=== PATIENT | female | born 1945 | race Caucasian/White ===

== ENCOUNTER 2017-11-27 08:36 | Inpatient (IN) ==
[2017-11-27] MEDS ORDERED: Piperacil/Tazo 2.25 GM Premix 50 ML IV.SIG ONE (11:12)
[2017-11-27] MEDS ORDERED: Vancomycin Inj 1 GM/200 ML PIGGYBACK IV.SIG ONE (11:12)
[2017-11-27] MEDS ORDERED: Sod Chloride 0.9% Inj 1,000 ML IV.SIG ONE (11:12)
--- NOTE | 2017-11-27 11:21 | ED ---
HPI General Chief complaint: Skin/Abscess/Foreign Body Stated complaint: Pain Left Leg Time Seen by Provider: 11/27/17 11:01 Source: patient Mode of arrival: ambulatory Limitations: no limitations History of Present Illness HPI narrative: 72-year-old female with PMH of DM, A. fib, stage III CKD presents the ED for evaluation of wound of the left lower extremity. Sustained approximately 1 week ago. Patient states that she hit the end of the bed while going to the bathroom in the middle of the night. She states that she felt feverish yesterday but has not measured a temperature at home. She denies nausea or vomiting, numbness, tingling, weakness, limitations to range of motion of the leg, history of MRSA. She states that she saw her primary care provider approximately 5 days ago and was prescribed Keflex and Bactroban ointment. She is taken 4 days worth of the medications with no improvement of symptoms. She now complains of red streaking down the leg. Patient is visiting from [place] with her family. Related Data Home Medications Medication Instructions Recorded Confirmed acetaminophen [Tylenol] 650 mg PO Q8H PRN 11/27/17 11/27/17 allopurinol 300 mg PO DAILY 11/27/17 11/27/17 atorvastatin [Lipitor] 10 mg PO DAILY 11/27/17 11/27/17 calcitriol 0.25 mcg PO Q OTHER DAY 11/27/17 11/27/17 estradiol [Estrace] 1 g VAGINAL 3XW 11/27/17 11/27/17 gabapentin 300 mg PO BID 11/27/17 11/27/17 levothyroxine [Synthroid] 100 mcg PO DAILY 11/27/17 11/27/17 liraglutide [Victoza 2-Jaydon] 0.6 mg SUB-Q DAILY 11/27/17 11/27/17 magnesium oxide 400 mg PO BID 11/27/17 11/27/17 metoprolol tartrate 25 mg PO BID 11/27/17 11/27/17 omeprazole magnesium [Prilosec OTC] 20 mg PO DAILY 11/27/17 11/27/17 paroxetine HCl [Paxil] 10 mg PO DAILY 11/27/17 11/27/17 rivaroxaban [Xarelto] 15 mg PO QPM 11/27/17 11/27/17 torsemide 10 mg PO DAILY 11/27/17 11/27/17 zolpidem [Ambien] 10 mg PO DAILY PRN 11/27/17 11/27/17 Allergies Allergy/AdvReac Type Severity Reaction Status Date / Time levofloxacin [From Levaquin] AdvReac Gastrointestinal Verified 11/27/17 08:43 Upset Review of Systems Except as stated in HPI: all other systems reviewed are negative [facility] Medical History Medical History Atrial fibrillation (Acute) Chronic kidney disease (Acute) Diabetes mellitus (Acute) H/O: hysterectomy (Acute) Hypertension (Acute) Kidney stones (Acute) Surgical History Surgical History History of appendectomy (Acute) History of cholecystectomy (Acute) Social History Social History Substance History: No History of Abuse Smoking Status: Never smoker How Often Do You Have a Drink Containing Alcohol: Monthly or less Recent Travel in [facility] within the Last 8 Weeks: No Recent Out of Country Travel within the Last 8 Weeks: No Exam Narrative Exam Narrative: GENERAL: Well-nourished, well-developed pleasant white female in no acute distress. SKIN: Focused skin assessment warm/dry. There is a 2 x 3 cm superficial abrasion of the proximal third of the anterior left calf. There is erythematous , mildly tender cellulitic streaking that extends nearly to the ankle. HEAD: Normocephalic. EYES: No scleral icterus. No injection or drainage. NECK: Supple, trachea midline. No JVD or lymphadenopathy. CARDIOVASCULAR: Regular rate and rhythm without murmurs, gallops, or rubs. RESPIRATORY: Breath sounds equal bilaterally. No accessory muscle use. GASTROINTESTINAL: Abdomen soft, non-tender, nondistended. MUSCULOSKELETAL: No cyanosis, or edema. FOCUSED LEFT LOWER EXTREMITY EXAM: 2+ DP pulse. Homans sign negative. Patient retains full, active, painless R OM of the extremity. Neurovascularly intact distally. BACK: Nontender without obvious deformity. No CVA tenderness. Course Initial Documented Vital Signs Temperature 98.3 F 11/27/17 08:43 Pulse Rate 70 11/27/17 08:43 Respiratory Rate 16 11/27/17 08:43 Blood Pressure 140/65 11/27/17 08:43 Pulse Oximetry 97 11/27/17 08:43 Last Documented Vital Signs Temperature 98.3 F 11/27/17 08:43 Pulse Rate 65 11/27/17 11:28 Respiratory Rate 18 07/17/18 11:28 Blood Pressure 136/98 H 11/27/17 11:28 Pulse Oximetry 97 11/27/17 11:28 Medical Decision Making MDM Narrative Medical decision making narrative: 72-year-old female with PMH of A. fib, DM, stage III CKD presents the ED for evaluation of cellulitis of the left lower extremity. Onset after bumping her leg against the bed frame in the middle the night while on vacation. Vitals reviewed. Physical exam consistent with lower extremity cellulitis. Patient has failed outpatient treatment. IV vancomycin and Zosyn initiated. Plan to admit for observation. Patient is agreeable with this plan. I spoke with Dr. Newman who agrees to accept the patient to the medicine service. Please see medicine notes for disposition. Differential Diagnosis Differential Diagnosis: Abrasion versus cellulitis versus failed outpatient treatment versus sepsis versus other Lab Data Result diagrams: 11/27/17 11:19 11/27/17 11:19 Lab Results 11/27/17 11/27/17 11/27/17 Range/Units 11:19 11:19 11:19 WBC 6.0 (4.0-11.0) th/mm3 RBC 3.82 L (4.00-5.30) mil/mm3 Hgb 12.4 (11.6-15.3) gm/dL Hct 37.8 (35.0-46.0) % MCV 98.9 (80.0-100.0) fL MCH 32.4 (27.0-34.0) pg MCHC 32.8 (32.0-36.0) % RDW 14.7 (11.6-17.2) % Plt Count 201 (150-450) th/mm3 MPV 7.7 (7.0-11.0) fL Neut % (Auto) 63.3 (16.0-70.0) % Lymph % (Auto) 26.7 (9.0-44.0) % [place] % (Auto) 6.6 (0.0-8.0) % Eos % (Auto) 3.0 (0.0-4.0) % Baso % (Auto) 0.4 (0.0-2.0) % Neut # (Auto) 3.8 (1.8-7.7) th/mm3 Lymph # (Auto) 1.6 (1.0-4.8) th/mm3 [place] # (Auto) 0.4 (0.0-0.9) th/mm3 Eos # (Auto) 0.2 (0.0-0.4) th/mm3 Baso # (Auto) 0.0 (0.0-0.2) th/mm3 WBC Differential . Differential Comment Auto diff final Sodium 143 (136-145) meq/L Potassium 4.3 (3.5-5.1) meq/L Chloride 108 H (98-107) meq/L Carbon Dioxide 28.0 (21.0-32.0) meq/L Anion Gap 7 (5-15) meq/L BUN 23 H (7-18) mg/dL Creatinine 1.61 H (0.50-1.00) mg/dL Estimated GFR 31 L (>89) mL/min Random Glucose 102 (74-106) mg/dL Lactic Acid 0.9 (0.4-2.0) mmol/L Calcium 9.0 (8.5-10.1) mg/dL Total Bilirubin 0.6 (0.2-1.0) mg/dL AST 25 (15-37) U/L ALT 14 (10-53) U/L Alkaline Phosphatase 73 (45-117) U/L Total Protein 7.3 (6.4-8.2) g/dL Albumin 3.2 L (3.4-5.0) g/dL Discharge Plan Discharge Disposition Patient Disposition: 30 Still Patient Discharge Details Diagnosis: Cellulitis of left lower extremity Physicians Team ED Provider: Catracho Bella ED Midlevel Provider: Yumiko Santizo Primary Care Provider: UNKNOWN, Rxs /Orders / Referrals /Forms Prescriptions: No Action acetaminophen [Tylenol] 325 mg Tablet 650 mg PO Q8H PRN (Reason: Pain) RF: 0 paroxetine HCl [Paxil] 10 mg Tablet 10 mg PO DAILY RF: 0 atorvastatin [Lipitor] 10 mg Tablet 10 mg PO DAILY RF: 0 torsemide 10 mg Tablet 10 mg PO DAILY RF: 0 levothyroxine [Synthroid] 100 mcg Tablet 100 mcg PO DAILY RF: 0 gabapentin 300 mg Capsule 300 mg PO BID RF: 0 allopurinol 300 mg Tablet 300 mg PO DAILY RF: 0 estradiol [Estrace] 0.01 % (0.1 mg/gram) Cream 1 g VAGINAL 3XW RF: 0 zolpidem [Ambien] 10 mg Tablet 10 mg PO DAILY PRN (Reason: Insomnia) RF: 0 calcitriol 0.25 mcg Capsule 0.25 mcg PO Q OTHER DAY RF: 0 omeprazole magnesium [Prilosec OTC] 20 mg Tablet,Delayed Release (Dr/Ec) 20 mg PO DAILY RF: 0 metoprolol tartrate 25 mg Tablet 25 mg PO BID RF: 0 liraglutide [Victoza 2-Jaydon] 0.6 mg/0.1 mL (18 mg/3 mL) Pen Injector 0.6 mg SUB-Q DAILY RF: 0 rivaroxaban [Xarelto] 15 mg Tablet 15 mg PO QPM RF: 0 magnesium oxide 400 mg Capsule 400 mg PO BID RF: 0 Discharge Interventions Interventions: Vital Signs Last Done: 11/27/17 11:28 Status ED Status: With Doctor
[2017-11-27 11:43] LABS: Baso % (Auto) 0.4 % (0.0-2.0); Eos # (Auto) 0.2 th/mm3 (0.0-0.4); Hematocrit 37.8 % (35.0-46.0); Hemoglobin 12.4 gm/dL (11.6-15.3); Lymph # (Auto) 1.6 th/mm3 (1.0-4.8); Lymph % (Auto) 26.7 % (9.0-44.0); Mean Corpuscular HGB Conc 32.8 % (32.0-36.0); Mean Corpuscular Hemoglobin 32.4 pg (27.0-34.0); Mean Corpuscular Volume 98.9 fL (80.0-100.0); Mean Platelet Volume 7.7 fL (7.0-11.0); Mono # (Auto) 0.4 th/mm3 (0.0-0.9); Mono % (Auto) 6.6 % (0.0-8.0); Neut # (Auto) 3.8 th/mm3 (1.8-7.7); Neut % (Auto) 63.3 % (16.0-70.0); Platelet Count 201 th/mm3 (150-450); Red Blood Count 3.82 mil/mm3 (4.00-5.30); Red Cell Distribution Width 14.7 % (11.6-17.2)
[2017-11-27 12:13] LABS: Alanine Aminotransferase 14 U/L (10-53); Albumin 3.2 g/dL (3.4-5.0); Anion Gap 7 meq/L (5-15); Aspartate Aminotransferase 25 U/L (15-37); Blood Urea Nitrogen 23 mg/dL (7-18); Chloride 108 meq/L (98-107); Glomerular Filtration Rate 31 mL/min (>89); Glucose,Random 102 mg/dL (74-106); Potassium 4.3 meq/L (3.5-5.1); Sodium 143 meq/L (136-145)
[2017-11-27 12:15] LABS: Alkaline Phosphatase 73 U/L (45-117); Total Protein 7.3 g/dL (6.4-8.2)
--- NOTE | 2017-11-27 12:56 | P.HPIM ---
History of Present Illness Primary Care Physician: UNKNOWN History of Present Illness: Mrs. Diaz is a 2-year-old female. She is in [place] from out of town and has been dealing with a left lower extremity wound with cellulitis. She has diabetes at baseline so this is a diabetic wound. As an outpatient she has been trying p.o. Keflex and Bactroban topically for the past 4 days but she feels the wound is continuing to worsen. This represents an outpatient treatment failure and IV antibiotics are indicated. Currently she is not septic. At baseline she has atrial fibrillation but no A. fib RVR is present at this point. She also has chronic kidney disease stage III which meet monitoring. No other complaints at this time. Inpatient Certification: I certify that the inpatient services were ordered in accordance with Medicare regulations governing the order. This includes certification that hospital inpatient services are reasonable and necessary and in the case of services not specified as inpatient-only under 42 CFR 419.22(n), that they are appropriately provided as inpatient services in accordance to with the 2-midnight benchmark under 43 CFR 412.3(e) Estimated Total Length of Stay (Days): 3 Plans for Post Hospital Care: Home Review of Systems Constitutional: Denies body ache(s), Denies chills, Denies fever(s), Denies night sweats Eyes: Denies blind spots, Denies blurry vision, Denies change in vision, Denies double vision Ears, Nose, Mouth, and Throat: Denies abnormal hearing, Denies bleeding gums, Denies ear pain, Denies nasal discharge Cardiovascular: Denies chest pain, Denies chest pain at rest, Denies chest pain with activity Respiratory: Denies cough, Denies shortness of breath, Denies wheezing Gastrointestinal: Denies abdominal pain, Denies black, tarry stools, Denies bloating, Denies bright, red blood in stools Genitourinary: Denies genital itching, Denies painful urination Musculoskeletal: Reports joint pain, Denies abnormal walking, Denies back pain, Denies body aches Skin/Breast: Reports change in skin color, Reports changing lesions, Reports new lesions, Reports redness, Reports skin pain, Denies rash, Denies skin ulcer Neurologic: Denies abnormal hearing, Denies abnormal movements, Denies abnormal speech PMFSH - History History Provided By: Patient - Medical History Medical History: Medical History (Last Updated 11/27/17 @ 11:29 by Syeda Jerez RN) Atrial fibrillation Chronic kidney disease Diabetes mellitus H/O: hysterectomy Hypertension Kidney stones - Surgical History Surgical History: Surgical History (Last Updated 11/27/17 @ 11:29 by Syeda Jerez RN) History of appendectomy History of cholecystectomy - Tobacco History Smoking Status: Never smoker - Alcohol History How Often Do You Have a Drink Containing Alcohol: Monthly or less - Substance Use History Substance History: No History of Abuse - Travel History Recent Travel in the [place] Within the Last 8 Weeks: No Recent Travel Out of the Country Within the Last 8 Weeks: No - Immunization History Tetanus Immunization: Unsure Hx Influenza Vaccine This Season: Yes Medications and Allergies Active Medications: Active Medications Vancomycin HCl 1,000 mg/ (Sodium Chloride) 250 mls @ 200 mls/hr IV.SIG ONCE ONE Stop: 11/27/17 14:14 Last Admin: 11/27/17 12:39 Dose: 125 mls/hr Allergies Allergy/AdvReac Type Severity Reaction Status Date / Time levofloxacin [From Levaquin] AdvReac Gastrointestinal Verified 11/27/17 08:43 Upset Home Medications Medication Instructions Recorded Confirmed Type acetaminophen [Tylenol] 650 mg PO Q8H PRN 11/27/17 11/27/17 History allopurinol 300 mg PO DAILY 11/27/17 11/27/17 History atorvastatin [Lipitor] 10 mg PO DAILY 11/27/17 11/27/17 History calcitriol 0.25 mcg PO Q OTHER DAY 11/27/17 11/27/17 History estradiol [Estrace] 1 g VAGINAL 3XW 11/27/17 11/27/17 History gabapentin 300 mg PO BID 11/27/17 11/27/17 History levothyroxine [Synthroid] 100 mcg PO DAILY 11/27/17 11/27/17 History liraglutide [Victoza 2-Jaydon] 0.6 mg SUB-Q DAILY 11/27/17 11/27/17 History magnesium oxide 400 mg PO BID 11/27/17 11/27/17 History metoprolol tartrate 25 mg PO BID 11/27/17 11/27/17 History omeprazole magnesium [Prilosec OTC] 20 mg PO DAILY 11/27/17 11/27/17 History paroxetine HCl [Paxil] 10 mg PO DAILY 11/27/17 11/27/17 History rivaroxaban [Xarelto] 15 mg PO QPM 11/27/17 11/27/17 History torsemide 10 mg PO DAILY 11/27/17 11/27/17 History zolpidem [Ambien] 10 mg PO DAILY PRN 11/27/17 11/27/17 History Exam Vital signs: Vital Signs 11/27/17 08:43 11/27/17 11:28 Temperature 98.3 F Pulse Rate 70 65 Respiratory Rate 16 18 Blood Pressure 140/65 136/98 H Pulse Oximetry 97 97 Intake & Output 11/26/17 11/27/17 11/27/17 18:59 06:59 18:59 Intake Total 1050 / 1050 Balance 1050 / 1050 Weight 104.326 kg Intake: IV 1050 / 1050 Zosyn 2.25 GM Premix 50 ML @ 50 / 50 100 mls/hr IV.SIG ONCE ONE Rx#: [id number] NS Inj 1,000 ML @ Wide Open IV. 1000 / 1000 SIG BOLUS ONE Rx#:[id number] Narrative: GENERAL: NAD, A&Ox3 HEAD: Normocephalic. NECK: Supple, trachea midline. No lymphadenopathy. EYES: No scleral icterus. No injection or drainage. CARDIOVASCULAR: Regular rate and rhythm without murmurs, gallops, or rubs. RESPIRATORY: Breath sounds equal bilaterally. No accessory muscle use. GASTROINTESTINAL: Abdomen soft, non-tender, nondistended. MUSCULOSKELETAL: No cyanosis, or edema. SKIN: Warm and dry. NEURO: No focal neurological deficits. Results - Labs CBC & Chem 7: 11/27/17 11:19 11/27/17 11:19 Labs: Short CBC 11/27/17 Range/Units 11:19 WBC 6.0 (4.0-11.0) th/mm3 Hgb 12.4 (11.6-15.3) gm/dL Hct 37.8 (35.0-46.0) % Plt Count 201 (150-450) th/mm3 BMP 11/27/17 11:19 Sodium 143 Potassium 4.3 Chloride 108 H Carbon Dioxide 28.0 BUN 23 H Creatinine 1.61 H Calcium 9.0 Liver Function 11/27/17 Range/Units 11:19 Total Bilirubin 0.6 (0.2-1.0) mg/dL AST 25 (15-37) U/L ALT 14 (10-53) U/L Alkaline Phosphatase 73 (45-117) U/L Albumin 3.2 L (3.4-5.0) g/dL Caprini VTE Risk Assessment Caprini VTE Risk Assessment: Moderate/High Risk (score >= 2) Caprini Risk Assessment Model: Point Value = 1 Point Value = 2 Point Value = 3 Point Value = 5 Age 41-60 Minor surgery BMI > 25 kg/m2 Swollen legs Varicose veins or History of unexplained or recurrent spontaneous Oral contraceptives or hormone replacement Sepsis (< 1 month) Serious lung disease, including pneumonia (< 1 month) Abnormal pulmonary function Acute myocardial infarction Congestive heart failure (< 1 month) History of inflammatory bowel disease Medical patient at bed rest Age 61-74 Arthroscopic surgery Major open surgery (> 45 min) Laparoscopic surgery (> 45 min) Malignancy Confined to bed (> 72 hours) Immobilizing plaster cast Central venous access Age >= 75 History of VTE Family history of VTE Factor V Leiden Prothrombin [id number] Lupus anticoagulant Anticardiolipin antibodies Elevated serum homocysteine Heparin-induced thrombocytopenia Other congenital or acquired thrombophilia Stroke (< 1 month) Elective arthroplasty Hip, pelvis, or leg fracture Acute spinal cord injury (< 1 month) Prophylaxis Regimen: Total Risk Factor Score Risk Level Prophylaxis Regimen 0-1 Low Early ambulation 2 Moderate Order ONE of the following: *Sequential Compression Device (SCD) *Heparin 5000 units SQ BID 3-4 Higher Order ONE of the following medications: *Heparin 5000 units SQ TID *Enoxaparin/Lovenox 40 mg SQ daily (WT < 150 kg, CrCl > 30 mL/min) *Enoxaparin/Lovenox 30 mg SQ daily (WT < 150 kg, CrCl > 10-29 mL/min) *Enoxaparin/Lovenox 30 mg SQ BID (WT < 150 kg, CrCl > 30 mL/min) AND/OR *Sequential Compression Device (SCD) 5 or more Highest Order ONE of the following medications: *Heparin 5000 units SQ TID (Preferred with Epidurals) *Enoxaparin/Lovenox 40 mg SQ daily (WT < 150 kg, CrCl > 30 mL/min) *Enoxaparin/Lovenox 30 mg SQ daily (WT < 150 kg, CrCl > 10-29 mL/min) *Enoxaparin/Lovenox 30 mg SQ BID (WT < 150 kg, CrCl > 30 mL/min) AND *Sequential Compression Device (SCD)
[2017-11-27] MEDS ORDERED: Vancomycin Consult Pharmacy 1 EACH OTHER SCH (13:00)
[2017-11-27] MEDS ORDERED: Vancomycin Inj 1,000 MG in Sodium Chlor 0.9% Inj 250 ML IV.SIG ONE (13:00)
[2017-11-27 13:34] LABS: Activated Partial Thrombo Time 37.5 sec (24.3-30.1); INR 1.4 Ratio
[2017-11-27] MEDS: Calcitriol 0.25 MCG Capsule PO SCH (13:52)
[2017-11-27] MEDS ORDERED: Dextrose 50% in Water 50 ML Vial IV.PUSH PRN (15:23)
[2017-11-27] MEDS: Insulin NovoLOG Aspart Correctional Sugar Inj SQ SCH ×2 (17:16→21:28)
[2017-11-27] MEDS: Lactobacillus Acidophilus/L. Spores Tablet PO SCH (19:54)
[2017-11-27] MEDS: Rivaroxaban 15 MG Tablet PO SCH (19:54)
--- NOTE | 2017-11-27 20:15 | MB ---
cc: Jimmy Diop DPMLarryJimmycory CARSONM DATE: 11/27/2017 REASON FOR CONSULTATION: Left lower extremity cellulitis and pretibial abrasion skin tear. HISTORY OF PRESENT ILLNESS: This is a pleasant 72-year-old female who is actually vacationing. She sustained a mild injury when she hit the edge of a metal cabinet. There was some bleeding. Local wound care took place; however, the patient has had increasing redness and pain over the last 1 to 2 days. The patient has a family member that is a physician who recommended admission to the hospital for IV antibiotics. The patient does admit she has diabetes. OTHER PAST MEDICAL HISTORY: Chronic kidney disease, hyperlipidemia, atrial fibrillation, hypothyroidism. ALLERGIES: LEVAQUIN. THE PATIENT HAS HISTORY OF TAKING AMOXICILLIN AND HAVING SEVERE VOMITING. INPATIENT MEDICATIONS: The patient is receiving Zosyn and vancomycin. PHYSICAL EXAMINATION: VITAL SIGNS: Temperature is 98.3, pulse rate 63, respiratory rate 20, blood pressure 147/69. Patient is sating 96% on room air. GENERAL: This is an alert and oriented female seen bedside exhibiting nonlabored respirations. EXTREMITIES: Left lower extremity is examined. There is approximately 2 x 3 cm partial thickness skin tear with overall a dry stable eschar. There is erythema that extends from the proximal pretibia down to the distal medial calf. There is slight warmth. There is no soft tissue emphysema. There is no drainage. Pedal pulses are palpable. Sensation intact to light touch and deep pressure. LABORATORY DATA: White blood cell 6, hemoglobin and hematocrit, 12 and 37, platelet count 201. Coagulation profile: PT 14.0, INR 1.4. Chem-7: Sodium 143, potassium 4.3, chloride 108, CO2 is 28, BUN is 23, creatinine 1.61. Random glucose is 102. Microbiology findings: Blood culture ordered and pending. ASSESSMENT AND PLAN: Left pretibial abrasion, uncomplicated. Mild edema and lower extremity cellulitis. My recommendation is Betadine swab to the pretibial abrasion with a non-adherent bandage. Compressive wrapping of the foot, ankle, leg with elevation. Continue IV antibiotics. Hope improvement over the next 24 hours. Unfortunately, it is hard to know exactly what the organism is. We should treat mainly for Gram positives at this point. ARIEL Galloway/ , 07:40 PM , 08:13 PM
[2017-11-27] MEDS: Magnesium Oxide 400 MG Tablet PO SCH (20:55)
[2017-11-27] MEDS: Piperacil/Tazo 3.375 GM Premix 50 ML IV.SIG SCH (20:55)
[2017-11-27] MEDS: Gabapentin 300 MG Capsule PO SCH (20:55)
[2017-11-27] MEDS: Metoprolol Tartrate 25 MG Tablet PO SCH (20:56)
[2017-11-28] MEDS: Piperacil/Tazo 3.375 GM Premix 50 ML IV.SIG SCH ×4 (04:12→19:21)
[2017-11-28] MEDS: Levothyroxine 100 MCG Tablet PO SCH (05:17)
[2017-11-28 06:45] LABS: Albumin 2.9 g/dL (3.4-5.0); Anion Gap 11 meq/L (5-15); Aspartate Aminotransferase 22 U/L (15-37); Blood Urea Nitrogen 20 mg/dL (7-18); Calcium 9.2 mg/dL (8.5-10.1); Carbon Dioxide 25.5 meq/L (21.0-32.0); Chloride 106 meq/L (98-107); Glomerular Filtration Rate 33 mL/min (>89); Glucose,Random 110 mg/dL (74-106); Sodium 142 meq/L (136-145)
[2017-11-28 06:47] LABS: Alanine Aminotransferase 12 U/L (10-53)
[2017-11-28 06:49] LABS: Alkaline Phosphatase 64 U/L (45-117); Total Protein 6.7 g/dL (6.4-8.2)
[2017-11-28 07:23] LABS: Hematocrit 36.9 % (35.0-46.0); Hemoglobin 12.2 gm/dL (11.6-15.3); Mean Corpuscular HGB Conc 33.1 % (32.0-36.0); Mean Corpuscular Hemoglobin 33.2 pg (27.0-34.0); Mean Corpuscular Volume 100.1 fL (80.0-100.0); Mean Platelet Volume 8.1 fL (7.0-11.0); Platelet Count 194 th/mm3 (150-450); Red Blood Count 3.69 mil/mm3 (4.00-5.30); Red Cell Distribution Width 14.8 % (11.6-17.2); White Blood Count 5.9 th/mm3 (4.0-11.0)
[2017-11-28 07:24] LABS: Baso % (Auto) 0.5 % (0.0-2.0); Eos # (Auto) 0.2 th/mm3 (0.0-0.4); Eos % (Auto) 3.2 % (0.0-4.0); Lymph # (Auto) 1.4 th/mm3 (1.0-4.8); Lymph % (Auto) 24.4 % (9.0-44.0); Mono # (Auto) 0.4 th/mm3 (0.0-0.9); Mono % (Auto) 6.1 % (0.0-8.0); Neut # (Auto) 3.9 th/mm3 (1.8-7.7); Neut % (Auto) 65.8 % (16.0-70.0)
--- NOTE | 2017-11-28 08:51 | P.PNPOD ---
Subjective Interval history: Slept well decreased pain and swelling left foot ankle and leg Physical Exam Vital signs: Vital Signs 11/27/17 11:28 11/27/17 14:01 11/27/17 20:00 Temperature 98.1 F Pulse Rate 65 63 65 Respiratory Rate 18 20 16 Blood Pressure 136/98 H 147/69 H 157/77 H Pulse Oximetry 97 96 94 L 11/27/17 23:40 11/28/17 04:00 11/28/17 08:00 Temperature 98.0 F 98.5 F 98.1 F Pulse Rate 71 74 67 Respiratory Rate 16 16 16 Blood Pressure 132/67 128/69 155/74 H Pulse Oximetry 94 L 94 L 94 L Intake & Output 11/27/17 11/28/17 11/28/17 18:59 06:59 18:59 Intake Total 1300 / 1300 100 / 100 Balance 1300 / 1300 100 / 100 Weight 104.326 kg Intake: IV 1300 / 1300 100 / 100 Zosyn 2.25 GM Premix 50 ML @ 50 / 50 100 mls/hr IV.SIG ONCE ONE Rx#: [id number] Zosyn 3.375 GM Premix 50 ML @ 100 / 100 100 mls/hr IV.SIG Q8H [facility] Rx#: [id number] NS Inj 1,000 ML @ Wide Open IV. 1000 / 1000 SIG BOLUS ONE Rx#:[id number] Vancomycin Inj 1,000 MG In NS 250 / 250 Inj 250 ML @ 200 mls/hr IV.SIG ONCE ONE Rx#:[id number] Other: # Voids 2 Date of Last Bowel Movement 11/26/17 Narrative: Left lower extremity: Decrease swelling redness and edema of the pretibial area and medial calf. Minimal fibrotic drainage now seen of the pretibial abrasion no complex abscess noted, neurovascular status intact good range of motion of hindfoot and ankle Medications and Allergies Active Medications: Active Medications Allopurinol (Zyloprim) 300 mg PO DAILY [facility] Atorvastatin Calcium (Lipitor) 10 mg PO DAILY [facility] Calcitriol (Rocaltrol) 0.25 mcg PO Q48H [facility] Last Admin: 11/27/17 13:52 Dose: Not Given Dextrose (D50w Vial) 50 ml IV.PUSH UNSCH PRN PRN Reason: PER HYPOGLYCEMIA PROTOCOL Gabapentin (Neurontin) 300 mg PO BID [facility] Last Admin: 11/27/17 20:55 Dose: 300 mg Glucagon (Glucagon Inj) 1 mg OTHER PRN PRN PRN Reason: for Hypoglycemia Protocol Pharmacy Profile Note (Vancomycin Consult Pharmacy) 0 mls @ 0 mls/hr OTHER UNSCH [facility] Vancomycin HCl 1,000 mg/ (Sodium Chloride) 250 mls @ 250 mls/hr IV.SIG Q24H [facility] Piperacillin/Tazobactam/Dextrose (Zosyn 3.375 Gm Premix) 50 mls @ 100 mls/hr IV.SIG Q8H [facility] Last Infusion: 11/28/17 04:40 Dose: Infused Insulin Aspart (Novolog Insulin Correctional Sugar Inj) 0 unit SQ ACHS [facility]; Protocol Last Admin: 11/27/17 21:28 Dose: Not Given Lactobacillus Acidophilus (Lactinex) 1 tab PO TID [facility] Last Admin: 11/27/17 19:54 Dose: 1 tab Levothyroxine Sodium (Synthroid) 100 mcg PO DAILY@0600 [facility] Last Admin: 11/28/17 05:17 Dose: 100 mcg Magnesium Oxide (Mag-Ox) 400 mg PO BID [facility] Last Admin: 11/27/17 20:55 Dose: 400 mg Metoprolol Tartrate (Lopressor) 25 mg PO BID [facility] Last Admin: 11/27/17 20:56 Dose: 25 mg Miscellaneous Information ([facility] Ordered Lab Info) 0 each OTHER ONCE ONE Stop: 11/30/17 13:46 Pantoprazole Sodium (Protonix) 20 mg PO DAILY [facility] Paroxetine HCl (Paxil) 10 mg PO DAILY [facility] Rivaroxaban (Xarelto) 15 mg PO QPM [facility] Last Admin: 11/27/17 19:54 Dose: 15 mg Torsemide (Demadex) 10 mg PO DAILY [facility] Zolpidem Tartrate (Ambien) 10 mg PO DAILY PRN PRN Reason: Insomnia Last Admin: 11/27/17 23:50 Dose: 10 mg Allergies Allergy/AdvReac Type Severity Reaction Status Date / Time amoxicillin [From Augmentin] Allergy Nausea/Vomi Verified 11/27/17 21:10 ting clavulanic acid Allergy Nausea/Vomi Verified 11/27/17 21:10 [From Augmentin] ting levofloxacin [From Levaquin] AdvReac Gastrointestinal Verified 11/27/17 08:43 Upset Home Medications Medication Instructions Recorded Confirmed Type acetaminophen [Tylenol] 650 mg PO Q8H PRN 11/27/17 11/27/17 History allopurinol 300 mg PO DAILY 11/27/17 11/27/17 History atorvastatin [Lipitor] 10 mg PO DAILY 11/27/17 11/27/17 History calcitriol 0.25 mcg PO Q OTHER DAY 11/27/17 11/27/17 History estradiol [Estrace] 1 g VAGINAL 3XW 11/27/17 11/27/17 History gabapentin 300 mg PO BID 11/27/17 11/27/17 History levothyroxine [Synthroid] 100 mcg PO DAILY 11/27/17 11/27/17 History liraglutide [Victoza 2-Jaydon] 0.6 mg SUB-Q DAILY 11/27/17 11/27/17 History magnesium oxide 400 mg PO BID 11/27/17 11/27/17 History metoprolol tartrate 25 mg PO BID 11/27/17 11/27/17 History omeprazole magnesium [Prilosec OTC] 20 mg PO DAILY 11/27/17 11/27/17 History paroxetine HCl [Paxil] 10 mg PO DAILY 11/27/17 11/27/17 History rivaroxaban [Xarelto] 15 mg PO QPM 11/27/17 11/27/17 History torsemide 10 mg PO DAILY 11/27/17 11/27/17 History zolpidem [Ambien] 10 mg PO DAILY PRN 11/27/17 11/27/17 History Results - Labs CBC & Chem 7: 11/28/17 05:52 11/28/17 05:52 Laboratory Results - last 24 hr 11/27/17 11/27/17 11/27/17 11:19 11:19 11:19 WBC 6.0 RBC 3.82 L Hgb 12.4 Hct 37.8 MCV 98.9 MCH 32.4 MCHC 32.8 RDW 14.7 Plt Count 201 MPV 7.7 Neut % (Auto) 63.3 Lymph % (Auto) 26.7 [place] % (Auto) 6.6 Eos % (Auto) 3.0 Baso % (Auto) 0.4 Neut # (Auto) 3.8 Lymph # (Auto) 1.6 [place] # (Auto) 0.4 Eos # (Auto) 0.2 Baso # (Auto) 0.0 WBC Differential . Differential Comment Auto diff final PT INR APTT Sodium 143 Potassium 4.3 Chloride 108 H Carbon Dioxide 28.0 Anion Gap 7 BUN 23 H Creatinine 1.61 H Estimated GFR 31 L POC Glucose Random Glucose 102 Lactic Acid 0.9 Calcium 9.0 Total Bilirubin 0.6 AST 25 ALT 14 Alkaline Phosphatase 73 Total Protein 7.3 Albumin 3.2 L 11/27/17 11/27/17 11/28/17 13:00 21:07 05:52 WBC 5.9 RBC 3.69 L Hgb 12.2 Hct 36.9 MCV 100.1 H MCH 33.2 MCHC 33.1 RDW 14.8 Plt Count 194 MPV 8.1 Neut % (Auto) 65.8 Lymph % (Auto) 24.4 [place] % (Auto) 6.1 Eos % (Auto) 3.2 Baso % (Auto) 0.5 Neut # (Auto) 3.9 Lymph # (Auto) 1.4 [place] # (Auto) 0.4 Eos # (Auto) 0.2 Baso # (Auto) 0.0 WBC Differential . Differential Comment Auto diff final PT 14.0 H INR 1.4 APTT 37.5 H Sodium Potassium Chloride Carbon Dioxide Anion Gap BUN Creatinine Estimated GFR POC Glucose 109 Random Glucose Lactic Acid Calcium Total Bilirubin AST ALT Alkaline Phosphatase Total Protein Albumin 11/28/17 11/28/17 05:52 07:56 WBC RBC Hgb Hct MCV MCH MCHC RDW Plt Count MPV Neut % (Auto) Lymph % (Auto) [place] % (Auto) Eos % (Auto) Baso % (Auto) Neut # (Auto) Lymph # (Auto) [place] # (Auto) Eos # (Auto) Baso # (Auto) WBC Differential Differential Comment PT INR APTT Sodium 142 Potassium 4.0 Chloride 106 Carbon Dioxide 25.5 Anion Gap 11 BUN 20 H Creatinine 1.55 H Estimated GFR 33 L POC Glucose 116 H Random Glucose 110 H Lactic Acid Calcium 9.2 Total Bilirubin 0.9 AST 22 ALT 12 Alkaline Phosphatase 64 Total Protein 6.7 D Albumin 2.9 L Assessment and Plan - Assessment (1) Cellulitis of left lower extremity Code(s): L03.116 - Cellulitis of left lower limb Status: Acute - Plan Microbiology reviewed there is no wound culture this was ordered. Compress elevate continue IV antibiotics, no surgical intervention planned at this point however may need 1-2 days longer of IV antibiotics pending culture
[2017-11-28] MEDS: Allopurinol 300 MG Tablet PO SCH (09:08)
[2017-11-28] MEDS: Gabapentin 300 MG Capsule PO SCH ×2 (09:08→20:55)
[2017-11-28] MEDS: Pantoprazole Sodium 20 MG DR Tablet PO SCH (09:09)
[2017-11-28] MEDS: Metoprolol Tartrate 25 MG Tablet PO SCH ×2 (09:09→20:57)
[2017-11-28] MEDS: Magnesium Oxide 400 MG Tablet PO SCH ×2 (09:09→20:56)
[2017-11-28] MEDS: Lactobacillus Acidophilus/L. Spores Tablet PO SCH ×3 (09:09→18:56)
[2017-11-28] MEDS: Gentamicin 0.1% Cream 15 GM Cream TOPICAL SCH (09:37)
[2017-11-28] MEDS: Insulin NovoLOG Aspart Correctional Sugar Inj SQ SCH ×3 (09:55→18:37)
--- NOTE | 2017-11-28 11:13 | P.PN ---
Subjective Interval history: Follow-up visit left wound, cellulitis. Patient seen and examined today. Reports she is doing well. States that she felt a lot better and the wound looked and appears improved. Patient states she has been a diabetic and had her hemoglobin A1c 6.8 about a month ago. States it has been managed well. Patient requesting to go home. Discussed with patient that we are needing cultures, she will probably need IV antibiotics for now. Otherwise, denies pain and discomfort. Denies SOB/ dyspnea. Denies chest pain, palpitations, headaches, dizziness. Denies fevers, chills, n/v/d. Denies dysuria. Physical Exam Vital signs: Vital Signs 11/27/17 11:28 11/27/17 14:01 11/27/17 20:00 Temperature 98.1 F Pulse Rate 65 63 65 Respiratory Rate 18 20 16 Blood Pressure 136/98 H 147/69 H 157/77 H Pulse Oximetry 97 96 94 L 11/27/17 23:40 11/28/17 04:00 11/28/17 08:00 Temperature 98.0 F 98.5 F 98.1 F Pulse Rate 71 74 67 Respiratory Rate 16 16 16 Blood Pressure 132/67 128/69 155/74 H Pulse Oximetry 94 L 94 L 94 L Intake & Output 11/27/17 11/28/17 11/28/17 18:59 06:59 18:59 Intake Total 1300 / 1300 100 / 100 500 / 500 Balance 1300 / 1300 100 / 100 500 / 500 Weight 104.326 kg Intake: IV 1300 / 1300 100 / 100 Zosyn 2.25 GM Premix 50 ML @ 50 / 50 100 mls/hr IV.SIG ONCE ONE Rx#: [id number] Zosyn 3.375 GM Premix 50 ML @ 100 / 100 100 mls/hr IV.SIG Q8H [facility] Rx#: [id number] NS Inj 1,000 ML @ Wide Open IV. 1000 / 1000 SIG BOLUS ONE Rx#:[id number] Vancomycin Inj 1,000 MG In NS 250 / 250 Inj 250 ML @ 200 mls/hr IV.SIG ONCE ONE Rx#:[id number] Oral 500 / 500 Other: # Voids 2 Date of Last Bowel Movement 11/26/17 Narrative: GENERAL: This is a well-nourished, well-developed patient, in no apparent distress. SKIN: Warm and dry. Left lower extremity open wound, approximately 3 cm x 2 cm , clean, erythema surrounding area. HEENT: Normocephalic. Pupils equal round and reactive. Nose without bleeding. Airway patent. NECK: Trachea midline. CARDIOVASCULAR: Regular rate and rhythm with murmurs. No gallops, or rubs. RESPIRATORY: Clear to auscultation. Breath sounds equal bilaterally. No wheezes , rales, or rhonchi. GASTROINTESTINAL: Abdomen soft, non-tender, nondistended. Bowel Sounds normoactive x4. MUSCULOSKELETAL: Extremities without clubbing, cyanosis. Trace left lower extremity edema. NEUROLOGICAL: Awake and alert. Oriented to time, place, person. No focal neuro deficit. Moves all extremities. Normal speech. Results - Labs CBC & Chem 7: 11/28/17 05:52 11/28/17 05:52 Laboratory Results - last 24 hr 11/27/17 11/27/17 11/27/17 11:19 11:19 11:19 WBC 6.0 RBC 3.82 L Hgb 12.4 Hct 37.8 MCV 98.9 MCH 32.4 MCHC 32.8 RDW 14.7 Plt Count 201 MPV 7.7 Neut % (Auto) 63.3 Lymph % (Auto) 26.7 [place] % (Auto) 6.6 Eos % (Auto) 3.0 Baso % (Auto) 0.4 Neut # (Auto) 3.8 Lymph # (Auto) 1.6 [place] # (Auto) 0.4 Eos # (Auto) 0.2 Baso # (Auto) 0.0 WBC Differential . Differential Comment Auto diff final PT INR APTT Sodium 143 Potassium 4.3 Chloride 108 H Carbon Dioxide 28.0 Anion Gap 7 BUN 23 H Creatinine 1.61 H Estimated GFR 31 L POC Glucose Random Glucose 102 Lactic Acid 0.9 Calcium 9.0 Total Bilirubin 0.6 AST 25 ALT 14 Alkaline Phosphatase 73 Total Protein 7.3 Albumin 3.2 L 11/27/17 11/27/17 11/28/17 13:00 21:07 05:52 WBC 5.9 RBC 3.69 L Hgb 12.2 Hct 36.9 MCV 100.1 H MCH 33.2 MCHC 33.1 RDW 14.8 Plt Count 194 MPV 8.1 Neut % (Auto) 65.8 Lymph % (Auto) 24.4 [place] % (Auto) 6.1 Eos % (Auto) 3.2 Baso % (Auto) 0.5 Neut # (Auto) 3.9 Lymph # (Auto) 1.4 [place] # (Auto) 0.4 Eos # (Auto) 0.2 Baso # (Auto) 0.0 WBC Differential . Differential Comment Auto diff final PT 14.0 H INR 1.4 APTT 37.5 H Sodium Potassium Chloride Carbon Dioxide Anion Gap BUN Creatinine Estimated GFR POC Glucose 109 Random Glucose Lactic Acid Calcium Total Bilirubin AST ALT Alkaline Phosphatase Total Protein Albumin 11/28/17 11/28/17 05:52 07:56 WBC RBC Hgb Hct MCV MCH MCHC RDW Plt Count MPV Neut % (Auto) Lymph % (Auto) [place] % (Auto) Eos % (Auto) Baso % (Auto) Neut # (Auto) Lymph # (Auto) [place] # (Auto) Eos # (Auto) Baso # (Auto) WBC Differential Differential Comment PT INR APTT Sodium 142 Potassium 4.0 Chloride 106 Carbon Dioxide 25.5 Anion Gap 11 BUN 20 H Creatinine 1.55 H Estimated GFR 33 L POC Glucose 116 H Random Glucose 110 H Lactic Acid Calcium 9.2 Total Bilirubin 0.9 AST 22 ALT 12 Alkaline Phosphatase 64 Total Protein 6.7 D Albumin 2.9 L Microbiology 11/27/17 11:19 Blood - Line Aerobic Blood Culture - Preliminary No growth in 1 day 11/27/17 11:19 Blood - Line Anaerobic Blood Culture - Preliminary No growth in 1 day 11/27/17 11:19 Blood - Line Aerobic Blood Culture - Preliminary No growth in 1 day 11/27/17 11:19 Blood - Line Anaerobic Blood Culture - Preliminary No growth in 1 day Assessment and Plan - Plan Mrs. Diaz is a 2-year-old female. She is in [place] from out of town and has been dealing with a left lower extremity wound with cellulitis. Left lower extremity cellulitis, wound -Blood cultures ordered, pending -IV Esperanza Hardy -Podiatry consulted, seen by Dr. Diop appreciate recommendation. Recommends compress elevate left lower extremity. No surgical intervention for now. Patient will need 1-2 days longer of IV antibiotics. Await for cultures. -Continue with pain management Atrial fibrillation -No signs of RVR, rate controlled -Continue Xarelto Chronic kidney disease stage III -Monitor renal function -Avoid nephrotoxins Diabetes mellitus type 2 -Hold home medication Victoza -Insulin sliding scale -Diabetic diet Hyperlipidemia Hypothyroidism Gout Depression -Continue home medications DVT prophylaxis Xarelto Code Status: Full Code Discussed Condition With: Patient, nursing Discharge Planning: Plan to DC home when cultures come in. Cleared by podiatry.
[2017-11-28] MEDS ORDERED: Vancomycin Inj 1,500 MG in Sodium Chlor 0.9% Inj 500 ML IV.SIG SCH (14:00)
[2017-11-28] MEDS ORDERED: Vancomycin Inj 1,000 MG in Sodium Chlor 0.9% Inj 250 ML IV.SIG SCH (14:00)
[2017-11-28] MEDS: Rivaroxaban 15 MG Tablet PO SCH (18:56)
[2017-11-29] MEDS: Insulin NovoLOG Aspart Correctional Sugar Inj SQ SCH ×2 (03:05→09:39)
[2017-11-29] MEDS: Piperacil/Tazo 3.375 GM Premix 50 ML IV.SIG SCH ×2 (03:53→12:08)
[2017-11-29] MEDS: Levothyroxine 100 MCG Tablet PO SCH (05:58)
[2017-11-29 07:53] VITALS: PULSE 62
[2017-11-29 08:20] LABS: Baso % (Auto) 0.5 % (0.0-2.0); Eos # (Auto) 0.2 th/mm3 (0.0-0.4); Eos % (Auto) 3.6 % (0.0-4.0); Hematocrit 35.3 % (35.0-46.0); Hemoglobin 11.4 gm/dL (11.6-15.3); Lymph # (Auto) 1.4 th/mm3 (1.0-4.8); Lymph % (Auto) 25.5 % (9.0-44.0); Mean Corpuscular HGB Conc 32.4 % (32.0-36.0); Mean Corpuscular Hemoglobin 32.4 pg (27.0-34.0); Mean Corpuscular Volume 99.7 fL (80.0-100.0); Mean Platelet Volume 7.6 fL (7.0-11.0); Mono # (Auto) 0.4 th/mm3 (0.0-0.9); Neut # (Auto) 3.6 th/mm3 (1.8-7.7); Neut % (Auto) 63.4 % (16.0-70.0); Platelet Count 178 th/mm3 (150-450); Red Blood Count 3.54 mil/mm3 (4.00-5.30); Red Cell Distribution Width 14.6 % (11.6-17.2); White Blood Count 5.6 th/mm3 (4.0-11.0)
[2017-11-29 08:46] LABS: Calcium 9.2 mg/dL (8.5-10.1); Carbon Dioxide 28.5 meq/L (21.0-32.0); Potassium 4.1 meq/L (3.5-5.1)
[2017-11-29] MEDS: Lactobacillus Acidophilus/L. Spores Tablet PO SCH ×2 (09:37→12:09)
[2017-11-29] MEDS: Gabapentin 300 MG Capsule PO SCH (09:38)
[2017-11-29] MEDS: Magnesium Oxide 400 MG Tablet PO SCH (09:38)
[2017-11-29] MEDS: Pantoprazole Sodium 20 MG DR Tablet PO SCH (09:39)
[2017-11-29] MEDS: Metoprolol Tartrate 25 MG Tablet PO SCH (09:39)
[2017-11-29] MEDS: Allopurinol 300 MG Tablet PO SCH (09:39)
--- NOTE | 2017-11-29 11:14 | P.DS ---
Date of admission: 11/28/17 16:07 Primary care physician: UNKNOWN Attending physician on discharge: Harshil Hendrickson Anticipated date of discharge: 11/29/17 Brief History from admission: Mrs. Diaz is a 2-year-old female. She is in [place] from out of town and has been dealing with a left lower extremity wound with cellulitis. She has diabetes at baseline so this is a diabetic wound. As an outpatient she has been trying p.o. Keflex and Bactroban topically for the past 4 days but she feels the wound is continuing to worsen. This represents an outpatient treatment failure and IV antibiotics are indicated. Currently she is not septic. At baseline she has atrial fibrillation but no A. fib RVR is present at this point. She also has chronic kidney disease stage III which meet monitoring. No other complaints at this time. DS: Diagnosis - Discharge Diagnosis (1) Cellulitis of left lower extremity Status: Acute DS: Medications - Discharge Medications Prescriptions: acidophilus-pectin, citrus [Acidophilus Probiotic] 1 cap PO BID 10 Days #20 cap clindamycin HCl [Cleocin HCl] 300 mg PO QID 7 Days #28 cap levofloxacin [Levaquin] 250 mg PO DAILY #7 tab DS: Summary Hospital Course: Mrs. Diaz is a 72-year-old female. She is in [place] from [place] and has been dealing with a left lower extremity wound with cellulitis. Snet by her PCP with keflex. Failure of outpatient treatment she came in to the hospital. Left lower extremity cellulitis have been treated with gentamicin, IV Vanco, IV Zosyn when she had 48 hour dose. Patient blood cultures were no growth to date. Her wound cultures were pending and Gram stain with rare WBCs and no organisms seen. Patient wanting to go home and have a follow-up with PCP. Agrees to be sent home with antibiotic p.o. clindamycin, Levaquin and acidophilus and follow-up with her PCP in [place]. She will be staying in [place] until Sunday. If we get the culture back, patient will be called back by nursing and if the antibiotic is not sensitive to the medication agrees to be changed. Wound appears to be improved, decreased swelling. Podiatry was consulted she was seen by Dr. Jeronimo. Recommends to continue to do dressing changes to the wound with application of gentamicin, no surgical intervention. She will have to do compression with Adam wrap and elevate her lower extremity at rest. Discussed wound care extensively with patient. Patient received doses of Vanco and Zosyn she has chronic kidney disease stage III, elevated creatinine during her stay possibly secondary to antibiotic use. She needs to follow-up with her PCP to monitor the trend of her renal indicis. Chronic atrial fibrillation continued on Xarelto home medication. No RVR and her rate was controlled during her entire hospitalization. She will continue to take her diabetic medication. Patient has met maximal benefits of hospitalization. Clinically stable for discharge. - Time Spent with Patient Total time spent providing and/or coordinating discharge services: Less than 30 minutes - Quality: VTE Deep Vein Thrombosis/Pulmonary Embolism Present on Admission: No Exam Vital signs: Vital Signs 11/28/17 12:00 11/28/17 16:00 11/28/17 20:00 Temperature 98.3 F 98.6 F 98.1 F Pulse Rate 68 84 77 Respiratory Rate 16 16 16 Blood Pressure 106/53 L 130/63 129/63 Pulse Oximetry 95 94 L 94 L 11/29/17 00:00 11/29/17 04:00 11/29/17 07:52 Temperature 98.2 F 98.5 F 97.9 F Pulse Rate 89 65 62 Respiratory Rate 16 16 16 Blood Pressure 125/59 L 117/63 119/56 L Pulse Oximetry 93 L 90 L 95 Intake & Output 11/28/17 11/29/17 11/29/17 18:59 06:59 18:59 Intake Total 1065 / 1065 650 / 650 Balance 1065 / 1065 650 / 650 Intake: IV 65 / 65 650 / 650 Zosyn 3.375 GM Premix 50 ML @ 50 / 50 150 / 150 100 mls/hr IV.SIG Q8H [facility] Rx#: [id number] Vancomycin Inj 1,500 MG In NS 15 / 15 500 / 500 Inj 500 ML @ 250 mls/hr IV.SIG Q24H [facility] Rx#:[id number] Oral 1000 / 1000 Narrative: GENERAL: This is a well-nourished, well-developed patient, in no apparent distress. SKIN: Warm and dry. Left lower extremity open wound, approximately 3 cm x 2 cm , clean, erythema surrounding area. HEENT: Normocephalic. Pupils equal round and reactive. Nose without bleeding. Airway patent. NECK: Trachea midline. CARDIOVASCULAR: Regular rate and rhythm with murmurs. No gallops, or rubs. RESPIRATORY: Clear to auscultation. Breath sounds equal bilaterally. No wheezes , rales, or rhonchi. GASTROINTESTINAL: Abdomen soft, non-tender, nondistended. Bowel Sounds normoactive x4. MUSCULOSKELETAL: Extremities without clubbing, cyanosis. Trace left lower extremity edema. NEUROLOGICAL: Awake and alert. Oriented to time, place, person. No focal neuro deficit. Moves all extremities. Normal speech. Results Procedures completed during hospitalization: None Labs on day of discharge: Labs from last 24 hours 11/29/17 11/29/17 11/29/17 08:02 08:02 08:01 WBC 5.6 RBC 3.54 L Hgb 11.4 L Hct 35.3 MCV 99.7 MCH 32.4 MCHC 32.4 RDW 14.6 Plt Count 178 MPV 7.6 Neut % (Auto) 63.4 Lymph % (Auto) 25.5 [place] % (Auto) 7.0 Eos % (Auto) 3.6 Baso % (Auto) 0.5 Neut # (Auto) 3.6 Lymph # (Auto) 1.4 [place] # (Auto) 0.4 Eos # (Auto) 0.2 Baso # (Auto) 0.0 WBC Differential . Differential Comment Auto diff final Sodium 143 Potassium 4.1 Chloride 106 Carbon Dioxide 28.5 Anion Gap 9 BUN 25 H Creatinine 1.96 H Estimated GFR 25 L POC Glucose 124 H Random Glucose 132 H Calcium 9.2 11/28/17 11/28/17 20:21 12:27 WBC RBC Hgb Hct MCV MCH MCHC RDW Plt Count MPV Neut % (Auto) Lymph % (Auto) [place] % (Auto) Eos % (Auto) Baso % (Auto) Neut # (Auto) Lymph # (Auto) [place] # (Auto) Eos # (Auto) Baso # (Auto) WBC Differential Differential Comment Sodium Potassium Chloride Carbon Dioxide Anion Gap BUN Creatinine Estimated GFR POC Glucose 137 H 133 H Random Glucose Calcium Preliminary micro results at discharge 11/27/17 11:19 Aerobic Blood Culture - Preliminary Blood - Line No growth in 2 days Anaerobic Blood Culture - Preliminary No growth in 2 days 11/27/17 11:19 Aerobic Blood Culture - Preliminary Blood - Line No growth in 2 days Anaerobic Blood Culture - Preliminary No growth in 2 days Discharge Plan - Discharge Disposition Patient Disposition: 01 Discharge Home - Discharge Condition Condition: Stable - Discharge Order Discharge Orders: Discharge Order (Routine); Ordered 11/29/17 Ordered By: Marco Campos - Physicians Team Primary Care Provider: UNKNOWN, Attending Provider: Harshil Hendrickson Other Providers: Jimmy Jeronimo DPM ; [facility]
[2017-11-29 11:22] VITALS: BP 136/63; RESP 18; TEMP 98.1; O2SAT 96
[2017-11-29] MEDS: Gentamicin 0.1% Cream 15 GM Cream TOPICAL SCH (11:24)
[2017-11-29] MEDS: Calcitriol 0.25 MCG Capsule PO SCH (12:09)
[2017-11-30] MEDS ORDERED: Pharmacy Ordered Lab Info OTHER ONE (13:45)
== END 2017-11-29 13:17 | disposition home or self-care (01) ==
LOC: NEPGCP 08:36 → NEDA 08:36 → NEPE 08:36 → NEDA 14:41 → NEPGCP 17:40
PROVIDERS: ADMIT Internal Medicine; ATTEND Internal Medicine
DX: E03.9 Hypothyroidism, unspecified; Y92.003 Bedroom of unspecified non-institutional (private) residence as the place of occurrence of the external cause; I12.9 Hypertensive chronic kidney disease with stage 1 through stage 4 chronic kidney disease, or unspecified chronic kidney disease; E11.69 Type 2 diabetes mellitus with other specified complication; W22.03XA Walked into furniture, initial encounter; Z79.02 Long term (current) use of antithrombotics/antiplatelets; S80.812A Abrasion, left lower leg, initial encounter; M10.9 Gout, unspecified; L03.116 Cellulitis of left lower limb; E11.22 Type 2 diabetes mellitus with diabetic chronic kidney disease; Z79.899 Other long term (current) drug therapy; N18.3 Chronic kidney disease, stage 3 (moderate); E78.5 Hyperlipidemia, unspecified; I48.2 Chronic atrial fibrillation; F32.9 Major depressive disorder, single episode, unspecified